=== PATIENT | male | born 1950 | race Caucasian/White ===

== ENCOUNTER 2016-03-26 13:16 | Observation (INO) | payer MEDICARE ==
[2016-03-26 13:56] LABS: ABSOLUTE NEUTROPHIL COUNT 3.1 K/mm3 (1.8-7.7); BASO % 0.6 % (0.2-1.0); EOS # 0.3 (0.0-0.5); EOS % 6.4 % (0.9-2.9); HEMATOCRIT 38.8 % (32.0-52.0); HEMOGLOBIN 12.6 gm/l (14.0-18.0); LYMPH # 1.1 (1.0-4.8); LYMPH % 23.2 % (15-45); MEAN CORPUSCULAR HEMOGLOBIN 27.9 pg (27.0-31.0); MEAN CORPUSCULAR HGB CONC 32.5 g/dl (33.0-37.0); MEAN PLATELET VOLUME 10.3 fl (7.4-10.4); MONO # 0.4 (0.0-0.8); MONO % 7.2 % (4-12); NEUT % 62.6 % (43-75); PLATELET COUNT 211 K/mm3 (130-400); RED CELL DISTRIBUTION WIDTH 12.8 % (11.5-14.5)
[2016-03-26 14:10] LABS: TROPONIN I < 0.01 ng/ml (0.0-0.06)
[2016-03-26 14:13] LABS: ALB/GLOB RATIO 1.3 (>1.0); ALBUMIN 4.1 gm/dL (3.5-5.7); CALCIUM 9.4 mg/dL (8.6-10.3); MAGNESIUM 1.8 mg/dL (1.9-2.7)
[2016-03-26 14:14] LABS: CKMB ISOENZYME 3.3 ng/ml (0.6-6.3)
[2016-03-26 15:06] LABS: SPECIFIC GRAVITY 1.025 (1.001-1.030); URINE BILIRUBIN NEGATIVE (NEGATIVE); URINE BLOOD NEGATIVE (NEGATIVE); URINE GLUCOSE (UA) NEGATIVE (NEGATIVE); URINE LEUKOCYTE ESTERASE NEGATIVE (NEGATIVE); URINE NITRITE NEGATIVE (NEGATIVE); URINE PROTEIN TRACE (NEGATIVE); URINE UROBILINOGEN NORMAL (0-1 mg/dl)
[2016-03-26 15:12] LABS: URINE APPEARANCE CLEAR; URINE COLOR DARK YELLOW
[2016-03-26] MEDS ORDERED: DIAZEPAM 5 MG TABLET ONE (15:54)
[2016-03-26] MEDS ORDERED: ASPIRIN CHEWTAB 81 MG TABLET ONE (15:58)
--- NOTE | 2016-03-26 16:05 | RAD ---
CHEST 2 VIEWS HISTORY: Chest pain and shortness of breath. Frontal and lateral chest radiographs dated 03/26/2016. COMPARISON: 10/06/2014. FINDINGS: FOCAL AIRSPACE OPACITY: No gross airspace consolidation. Stable linear densities at the left lung base, scarring favored. PLEURAL EFFUSION: None. CARDIOMEDIASTINAL SILHOUETTE: Evidence of prior bypass surgery. Nonenlarged cardiac silhouette. PNEUMOTHORAX: None identified. OSSEOUS STRUCTURES: Evidence of prior sternotomy. Thoracic disc degeneration. Degenerative change of the shoulder girdle. IMPRESSION: No acute cardiopulmonary process noted. Evidence of interval bypass surgery and minor scarring of the left lung base.
[2016-03-26] MEDS ORDERED: REGADENOSON 0.1 MG DOSE IV ONE (16:12)
[2016-03-26] MEDS ORDERED: BLISTEX LIPSTICK 1 EACH TP PRN (17:04)
[2016-03-26] MEDS ORDERED: SODIUM CHLORIDE 0.9% 100 ML IV PRN (17:04)
[2016-03-26] MEDS ORDERED: BISACODYL 10 MG SUP PR PRN (17:04)
[2016-03-26] MEDS ORDERED: MENTHOL/CETYLPYRD 1 EACH LOZENGE PO PRN (17:04)
[2016-03-26] MEDS ORDERED: MAGNESIUM HYDROXIDE 30 ML UDCUP PO PRN (17:04)
[2016-03-26] MEDS ORDERED: ACETAMINOPHEN 325 MG TABLET PO PRN ×2 (17:04→18:41)
[2016-03-26] MEDS ORDERED: BISACODYL 5 MG TABLET.EC PO PRN (17:04)
[2016-03-26 17:38] VITALS: BMI 34.1
[2016-03-26] MEDS ORDERED: PNEUMOCOCCAL 23-VAL P-SAC VAC 0.5 ML VIAL IM V ONE (17:39)
[2016-03-26] MEDS ORDERED: INSULIN ASPART (DOSE) 100 UNITS/1 ML SUB-Q PRN (20:01)
[2016-03-26] MEDS ORDERED: Magnesium Oxide 400 MG TABLET PO ONE (20:07)
[2016-03-26] MEDS: DOCUSATE SODIUM 100 MG CAPSULE PO SCH (21:52)
[2016-03-26] MEDS: METOPROLOL SUCCINATE (XL) 50 MG TAB.PRT.SR PO SCH (21:52)
[2016-03-26] MEDS: ALPRAZOLAM 0.25 MG TABLET PO PRN (22:47)
[2016-03-27] MEDS: OXYCODONE HCL 5 MG TABLET PO PRN ×2 (04:45→09:04)
[2016-03-27 07:44] LABS: CALCIUM 8.8 mg/dL (8.6-10.3); CHOLESTEROL RISK RATIO 2.8 (4.0-6.7)
--- NOTE | 2016-03-27 07:44 | HP ---
Jerardo Beck [id number] DATE OF ADMISSION: 03/26/2016 CHIEF COMPLAINT: Chest pain. HISTORY OF PRESENT ILLNESS: The patient is a 66-year-old male with coronary artery bypass graft performed in January of this year who presents with complaints of intermittent chest pain symptoms off and on since his bypass. He has had increasing anxiety about these chest pains, which occur sometimes with activity and today he had an episode after he got up to go to the bathroom. He felt a throbbing in his neck followed by an ache in his chest up to 04/19 and presented to the emergency department for further revaluation. The pain resolved spontaneously. In the emergency department, he was felt to have some very subtle ST depression in the lateral leads and was referred to the hospitalist service for observation. His initial cardiac enzymes were negative. REVIEW OF SYSTEMS: Negative for any recent fevers or chills. He has had some upper respiratory symptoms with nasal congestion over the past four or five days, but it is improving. He denies cough, dyspnea, wheezing, shortness of breath, or palpitations. He has had no lower extremity edema. He denies any nausea, vomiting, abdominal pain, diarrhea, or constipation. He does suffer from chronic pain in his lower back and in his joints, which is unchanged. He denies any headaches, fainting, blackouts, or seizures. He has had no urinary complaints. He does have some chronic urgency. His review of systems is otherwise negative. He has been experiencing quite a bit of anxiety since he had his bypass surgery with regards to his mortality and his chest pain symptoms. PAST MEDICAL HISTORY: Significant for coronary artery disease recently diagnosed. He had a myocardial infarction in January and was sent immediately for bypass, which was performed bypassing four vessels, he states this was done at [facility] in January. His siding stapler also is in [place] and supposedly he has an appointment this week with [facility]. He has a history of benign prostatic hypertrophy, stable on medications, chronic essential hypertension, stable on medications, adult onset diabetes on oral meds, hypercholesterolemia on Lipitor, chronic pain on Percocet and a intrathecal pain pump, and has advanced degenerative disc disease in his lower back, as well as generalized osteoarthritis. PAST SURGICAL HISTORY: Significant for five previous lumbar spine surgeries, the last was in 2006. He had a left leg fasciotomy performed in 2006 as a complication of the back surgery. He had a four vessel coronary artery bypass done in January of last year. He had a right total knee replacement done in December of last year. He had a right total knee replacement done approximately eight years ago. He denies any prior abdominal surgeries. He has a pain pump that was implanted about five years ago and is managed by a film painter in [place]. ALLERGIES: HE HAD AN ADVERSE REACTION TO HALDOL, but no drug allergies and the Haldol just made him sedated, which is a normal respone. CURRENT MEDICATIONS: 1. Flomax 0.4 mg daily. 2. Toprol XL 25 mg twice daily. 3. Potassium chloride 20 mEq daily. 4. Plavix 75 mg daily. 5. Lipitor 80 mg daily. 6. Metformin 1000 mg twice daily. 7. Lasix 40 mg daily. 8. Percocet 10/325 one to two up to three times daily. 9. Colace 100 mg daily. 10. Enteric coated aspirin 81 mg daily. 11. Morphine intrathecal pump. FAMILY HISTORY: Unremarkable. SOCIAL HISTORY: He lives with his . He has a grown daughter and a grandchild. He smoked cigars briefly for about three years, but has not smoked in the past year. He drinks alcohol socially. He denies any illicit drug use. 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 Currently disabled because of his heart disease. His primary care provider is Dr. Melvin Theodore. PHYSICAL EXAMINATION: VITAL SIGNS: Show a temperature of 97.9, pulse 68, blood pressure 152/67, respirations 14, oxygen saturation is 100% on room air. His body mass index 34.1, weight is 98.9 kg. GENERAL: This is a slightly obese male in no acute distress. HEENT: Unremarkable. NECK: Supple without lymphadenopathy or thyromegaly. LUNGS: Clear to auscultation bilaterally. CARDIOVASCULAR: Reveals a regular rate and rhythm without a murmur. ABDOMEN: Obese, soft, nontender, nondistended with positive bowel sounds. EXTREMITIES: Show no peripheral edema. Dorsalis pedis arteries and radial arteries are 2+ bilaterally. DIAGNOSTICS: A 12-lead EKG shows minimal ST depression in the lateral leads which is very subtle. No other acute changes. He is in sinus rhythm. LABORATORY: CBC on his labs showed a white count of 4.9, hemoglobin of 12.6, platelet count 211,000, normal differential. Chemistry profile showed a sodium of 140, potassium 3.6, BUN 10, creatinine 0.8, glucose 128. Liver functions tests were normal. Magnesium was 1.8. Lipase was normal. ASSESSMENT: The patient has chest pain with history of recent coronary artery bypass, some EKG changes possibly consistent with ischemia. He is referred to the hospitalist service for observation on telemetry. We will get serial cardiac enzymes. He has diabetes, we will manage with correction scale insulin. He has chronic essential hypertension, hypercholesterolemia, and benign prostatic hypertrophy. We will continue his usual medications for these problems. If his cardiac enzymes are negative I am going to consult with [facility] to determine if they want us to do a stress test if they would prefer to evaluate him in their office. He will get a fasting lipid profile in the morning. Further treatment and recommendations will depend on his hospital course. JOB: [id number] CC: Dr. Melvin Theodore [facility] in [place]
[2016-03-27] MEDS: METOPROLOL SUCCINATE (XL) 50 MG TAB.PRT.SR PO SCH ×2 (08:52→14:57)
[2016-03-27] MEDS: DOCUSATE SODIUM 100 MG CAPSULE PO SCH (08:52)
[2016-03-27] MEDS ORDERED: ASPIRIN (ENTERIC COATED) 81 MG TABLET.EC PO SCH (09:00)
[2016-03-27] MEDS ORDERED: DOCUSATE SODIUM 100 MG CAPSULE PO SCH (09:00)
[2016-03-27] MEDS ORDERED: TAMSULOSIN HCL 0.4 MG CAPSULE.DR PO SCH (09:00)
[2016-03-27] MEDS ORDERED: ATORVASTATIN CALCIUM 40 MG TABLET PO SCH (09:00)
[2016-03-27] MEDS ORDERED: FUROSEMIDE 40 MG TABLET PO SCH (09:00)
[2016-03-27] MEDS ORDERED: CLOPIDOGREL BISULFATE 75 MG TABLET PO SCH (09:00)
[2016-03-27] MEDS ORDERED: POTASSIUM CHLORIDE 20 MEQ TAB.PRT.SR PO SCH (09:00)
[2016-03-27] MEDS: ALPRAZOLAM 0.25 MG TABLET PO PRN ×2 (09:05→12:39)
--- NOTE | 2016-03-27 09:50 | PDOC43 ---
- Subjective Chief Complaint: Chest pain Patient reports no further chest pain. He is breathing well, and was able to ambulate fine today. No c/o, just would like some coffee. - Objective Vital Signs Temperature 98.2 F 03/27/16 07:34 Pulse Rate 58 03/27/16 07:34 Respiratory Rate 18 03/27/16 07:34 Blood Pressure 136/55 03/27/16 07:34 O2 Saturation by Pulse Oximetry 98 03/27/16 07:34 Oxygen Delivery Method Room Air Oxygen Flow Rate 0 Vital Signs Last 12 Hours Temp Pulse Resp BP Pulse Ox 03/27/16 07:34 98.2 F 58 18 136/55 98 03/27/16 05:00 18 03/27/16 03:31 98.1 F 62 18 146/58 98 03/26/16 23:00 97.7 F 58 18 141/64 97 Intake and Output 03/25/16 03/26/16 03/27/16 23:59 23:59 23:59 Intake Total 605 Output Total 575 Balance 30 General: Alert, Cooperative, Acute Distress Lungs: Clear to Auscultation Bilaterally, Normal Air Movement Cardiovascular: Regular Rate and Rhythm, Other (well healed scar on chest.) Abdomen: Soft, Normal Bowel Sounds, Non-Distended Extremities: Edema (pt with fairly firm edema bilat lower extrem, no weeping. harvest sites only on left, but) Skin: Normal Color, Other (incisions healing well.) Neurological: Normal Speech Psych/Mental Status: Normal Affect, Normal Mood Laboratory 03/27/16 05:47 03/27/16 05:47 Estimated GFR 114 H Cholesterol 124 L Cholesterol Risk Factr 2.8 L Laboratory Tests 03/26/16 03/26/16 03/27/16 13:35 20:20 05:47 Troponin I < 0.01 < 0.01 Triglycerides 95 Cholesterol 124 L Cholesterol Risk Factr 2.8 L LDL Cholesterol 60 VLDL Cholesterol 19 HDL Cholesterol 45 Lipase 16 Current Medications: Current meds reviewed in EMR. Active Medications Acetaminophen (Tylenol) 650 mg PO Q6H PRN PRN Reason: Pain or Temperature > 100.5 F Last Admin: 03/27/16 09:03 Dose: 650 mg Acetaminophen (Tylenol) 325 - 650 mg PO TID PRN PRN Reason: Pain Alprazolam (Xanax) 0.5 - 1 mg PO Q4H PRN PRN Reason: Anxiety or sleep Last Admin: 03/27/16 09:05 Dose: 0.5 mg Aspirin (Ecotrin) 81 mg PO DAILY [facility] Last Admin: 03/27/16 08:49 Dose: 81 mg Atorvastatin Calcium (Lipitor) 80 mg PO DAILY [facility] Last Admin: 03/27/16 08:48 Dose: 80 mg Benzocaine/Menthol (Cepacol) 1 each PO PRN PRN PRN Reason: Sore Throat Bisacodyl (Dulcolax) 10 mg LA DAILY PRN PRN Reason: Constipation Bisacodyl (Dulcolax) 5 mg PO DAILY PRN PRN Reason: Constipation Clopidogrel Bisulfate (Plavix) 75 mg PO DAILY [facility] Last Admin: 03/27/16 08:52 Dose: 75 mg Docusate Sodium (Colace) 100 mg PO BID [facility] Last Admin: 03/27/16 08:52 Dose: Not Given Docusate Sodium (Colace) 100 mg PO DAILY [facility] Last Admin: 03/27/16 08:50 Dose: 100 mg Furosemide (Lasix) 40 mg PO DAILY [facility] Last Admin: 03/27/16 08:50 Dose: 40 mg Sodium Chloride (Sodium Chloride 0.9%) 100 mls @ 25 mls/hr IV PRN PRN PRN Reason: Flush Insulin Aspart (Novolog (Dose)) 0 units SUB-Q WM/BEDTIME PRN; Protocol PRN Reason: Blood Sugar > Magnesium Hydroxide (Milk Of Magnesia) 30 ml PO DAILY PRN PRN Reason: Constipation Metoprolol Succinate (Toprol Xl) 25 mg PO BID [facility] Last Admin: 03/27/16 08:52 Dose: Not Given Oxycodone HCl (Roxicodone) 10 - 20 mg PO TID PRN PRN Reason: Pain Last Admin: 03/27/16 09:04 Dose: 10 mg Petrolatum/Paraffin/Mineral Oil (Blistex) 1 each TP PRN PRN PRN Reason: Dry and/or chapped lips Potassium Chloride (K-Dur) 20 meq PO DAILY [facility] Last Admin: 03/27/16 08:50 Dose: 20 meq Sodium Chloride (Normal Saline 10ml Flush) 10 - 50 ml IV PRN PRN PRN Reason: IV Flush Sodium Chloride (Normal Saline 10ml Flush) 10 ml IV Q8HR [facility] Last Admin: 03/27/16 08:48 Dose: 10 ml Tamsulosin HCl (Flomax) 0.4 mg PO DAILY [facility] Last Admin: 03/27/16 08:51 Dose: 0.4 mg - Problems: Assessment/Plan (1) Chest pain Qualifiers: Chest pain type: other chest pain Qualifier Code: (R07.89) Other chest pain Status: Acute Assessment/Plan: pt with recent CABG. Pain free currently, symptom free. Planning Lexiscan this afternoon to check coronary perfusion. Pt will check with about name of construction plumber to send info to. (2) S/P CABG (coronary artery bypass graft) Status: Acute Assessment/Plan: checking perfusion (3) Edema Qualifiers: Edema type: unspecified Qualifier Code: (R60.9) Edema, unspecified Status: Acute Assessment/Plan: Pt with moderate bilateral lower extrem edema. Will check BNP, check U/S for DVT. VTE Prophylaxis: ambulatory lower risk patient Disposition: to be determined, but hope to go home today
--- NOTE | 2016-03-27 11:49 | US ---
Exam: Bilateral lower extremity venous ultrasound COMPARISON: 12/31/2015, 12/06/2014 INDICATION: Bilateral lower extremity edema after CABG. Right knee surgery 2 1/2 months ago. FINDINGS: The deep venous system of both lower extremities was evaluated with color flow, compression, augmentation spectral analysis. Nonspecific edema is seen within the calves which continues to limit evaluation. There is chronic appearing thrombus formation within the greater saphenous vein which extends within 4.4 cm of the saphenofemoral confluence; by history, patient had been surgery 2 months ago. The peroneal veins on the left were not visualized; of note, these were not seen on 11/16/2014 or 12/31/2015 either. The distal posterior tibial vein on the left was visualized and appear patent. The distal calf veins on the right were also seen and are patent. The deep venous system of both lower extremities from the popliteal veins up to the common femoral veins are patent without evidence of DVT. IMPRESSION: 1. No evidence of acute DVT within either lower extremity. 2. Chronic limited visualization of the calf veins. Chronic nonvisualization of the left peroneal vein; this could be related to remote DVT. 3. Chronic appearing thrombus formation within the left greater saphenous vein which extends to within 4.4 cm in the saphenofemoral confluence. This is likely related to recent vein procedure by history.
[2016-03-27 14:57] VITALS: BP 155/54
--- NOTE | 2016-03-27 15:49 | NUC MED ---
Exam: Nuclear medicine myocardial SPECT, ejection fraction and wall motion Comparison: None Indication: Chest pain, diabetes, smoking history, history of [place] and history of bypass surgery 2 months ago. Technique: 12.1 mCi of technetium 99m sestamibi were administered for the rest portion of the exam and SPECT imaging was obtained per protocol. Stress was achieved via the administration of 0.4 mg of LexiScan. At maximum stress, 33.9 mCi of technetium 99m sestamibi were administered and SPECT imaging was obtained per protocol. Findings: Ejection fraction is calculated at 73 %. There is septal akinesia, which can be seen following CABG. Wall motion is otherwise normal.. There is approximately 20% decreased perfusion within the lateral wall at stress involving the distal third of the ventricle compared with rest. Myocardial perfusion is otherwise normal at stress. Impression: 1. 20% decrease in perfusion within the distal third of the lateral wall of the left ventricle at stress compared with rest concerning for mild stress-induced ischemia. No additional concern for ischemia is identified. 2. Hypokinetic septum, a common finding after CABG. Wall motion is otherwise normal. 3. Ejection fraction 73%. Findings discussed with Dr. Torres at 1540 hours 03/27/2016.
--- NOTE | 2016-03-28 08:08 | DS ---
Jerardo Morales [id number] DATE OF ADMISSION: 03/26/2016 DATE OF DISCHARGE: 03/27/2016 DISCHARGE DIAGNOSES: 1. Chest pain, felt to be noncardiac. 2. Diabetes mellitus. 3. Essential hypertension. 4. Dyslipidemia. 5. Benign prostatic hypertrophy. PROCEDURES DONE: Lexiscan myoview. REASON FOR ADMISSION: The patient is a 66-year-old male with a coronary artery bypass graft done in January 2016 who had complained of some intermittent chest pain since his bypass. He had increased anxiety with this pain which could occur with activity and with an ache in his chest he presented to the emergency department for further reevaluation. The pain resolved spontaneously, but in the emergency department he was noted to have very subtle ST depression in the lateral leads and was referred to the hospitalist service for observation. His initial cardiac enzymes were negative. His other labs showed a white blood cell count of 4.9, hemoglobin 12.6, platelets 211. His sodium 140, potassium 3.6, BUN 10, creatinine 0.8, bicarbonate 29, glucose 128, calcium 9.4, magnesium 1.8. Liver enzymes unremarkable. Troponin less than 0.01. BUN 4.1, globulin 3.3, lipase 16. A urinalysis was negative. He had a chest x-ray performed which showed no acute cardiopulmonary process noted, evidenced of interval bypass surgery, and minor scarring of the left lung base. The patient was on the hospitalist service observed and had a lipid profile ordered for the morning. His HDL was 45, his LDL was 60. His troponin's continued to be negative and his follow up basic metabolic panel was normal. He underwent a nuclear medicine myocardial perfusion scan showing ejection fraction of 73%, septal akinesia which can be seen following coronary artery bypass graft, wall motion otherwise normal, approximately 20% decreased perfusion within the lateral wall at stress involving the distal third of the ventricle compared with rest, myocardial perfusion otherwise normal at stress. This was felt to not be significant and it is anticipated he will be discharged to home on his home medicines. DISCHARGE MEDICATIONS: 1. Aspirin 81 mg daily. 2. Atorvastatin 80 mg daily. 3. Clopidogrel 75 mg by mouth daily. 4. Docusate 100 mg by mouth daily. 5. Lasix 40 mg by mouth daily. 6. Glucophage 1000 mg by mouth twice daily. 7. Metoprolol succinate 25 mg by mouth twice daily. 8. Percocet 10/325 one to two by mouth three times daily as needed. 9. Potassium chloride 10 mEq by mouth daily. 10. Tamsulosin 0.4 mg by mouth daily. FOLLOW UP: He is to follow up with his laminating machine feeder Carroll Marsh and he has an appointment also with Dr. Melvin Theodore on 04/09/2016 at 11:00 a.m. He will continue his diabetic diet. Activity will be as tolerated and if having worsening pains may review with his laminating machine feeder and/or a chest surgeon. His vital signs remained stable during his hospitalization. He is eager to be discharged and discharge anticipated for 4:30 p.m. on 03/27/2016. JOB: [id number] CC: Dr. Melvin Zamora who is chest surgeon who did his bypass Dr. Carroll Marsh at [facility]
== END 2016-03-27 16:25 | disposition home or self-care (01) ==
LOC: ED 13:16 → MS 16:11
PROVIDERS: ADMIT Family Medicine; ATTEND Family Medicine
DX: R07.89 Other chest pain (principal); E11.9 Type 2 diabetes mellitus without complications; I10 Essential (primary) hypertension; E78.5 Hyperlipidemia, unspecified; N40.0 Benign prostatic hyperplasia without lower urinary tract symptoms; Z79.4 Long term (current) use of insulin; E78.00 Pure hypercholesterolemia, unspecified; Z95.1 Presence of aortocoronary bypass graft; Z87.891 Personal history of nicotine dependence

== ENCOUNTER 2016-05-23 01:00 | Emergency (ER) | payer MEDICARE ==
[2016-05-23 02:04] LABS: ABSOLUTE NEUTROPHIL COUNT 4.4 K/mm3 (1.8-7.7); BASO % 0.6 % (0.2-1.0); EOS # 0.2 (0.0-0.5); EOS % 3.3 % (0.9-2.9); HEMATOCRIT 42.4 % (32.0-52.0); HEMOGLOBIN 13.8 gm/l (14.0-18.0); IMM NEUT% 0.1 % (0-1); LYMPH # 1.7 (1.0-4.8); LYMPH % 22.7 % (15-45); MEAN CORPUSCULAR HEMOGLOBIN 27.7 pg (27.0-31.0); MEAN CORPUSCULAR HGB CONC 32.5 g/dl (33.0-37.0); MEAN PLATELET VOLUME 10.6 fl (7.4-10.4); MONO # 0.9 (0.0-0.8); MONO % 12.8 % (4-12); NEUT % 60.5 % (43-75); PLATELET COUNT 182 K/mm3 (130-400); RED CELL DISTRIBUTION WIDTH 13.8 % (11.5-14.5)
[2016-05-23 02:59] LABS: ALB/GLOB RATIO 1.2 (>1.0); ALBUMIN 4.2 gm/dL (3.5-5.7)
[2016-05-23 03:32] LABS: CALCIUM 9.4 mg/dL (8.6-10.3)
== END 2016-05-23 03:41 | disposition home or self-care (01) ==
LOC: ED 01:00
DX: R07.9 Chest pain, unspecified (principal); I25.2 Old myocardial infarction; E11.8 Type 2 diabetes mellitus with unspecified complications; Z79.84 Long term (current) use of oral hypoglycemic drugs; F17.210 Nicotine dependence, cigarettes, uncomplicated